=== PATIENT | male | born 1950 | race Caucasian/White ===

== ENCOUNTER 2022-01-09 07:59 | Outpatient (CLI) | payer MEDICARE, SELFPAY ==
[2022-01-09 19:07] LABS: Basophils Absolute Auto 0.1 K/mm3 (0.0-0.1); Eosinophils Absolute Auto 0.1 K/mm3 (0-0.3); Eosinophils Percent Auto 1.8 % (0-4.4); Hemoglobin 15.2 g/dL (14.0-18.0); Immature Granulocyte Absolute 0.04 K/mm3 (0.00-0.031); Immature Granulocyte Percent A 0.6 % (0-0.5); Lymphocytes Absolute Auto 2.21 K/mm3 (0.9-3.2); Lymphocytes Percent Auto 30.5 % (18.3-44.2); Mean Corpuscular Volume 90.9 fl (80-100); Mean Platelet Volume 10.5 fl (7.4-10.4); Monocytes Absolute Auto 0.6 K/mm3 (0.1-0.6); Monocytes Percent Auto 7.7 % (2.6-8.5); Neutrophils Absolute Auto 4.2 K/mm3 (1.3-6.7); Neutrophils Percent Auto 58.4 % (45.5-73.1); Platelet Count Result 321 k/mm3 (150-375); Red Blood Count 5.06 M/mm3 (4.6-6.20); Red Cell Distribution Width 13.5 % (11.5-14.5); White Blood Count 7.2 K/mm3 (4.5-10.0)
[2022-01-09 20:20] LABS: Alanine Aminotransferase 36 U/L (6-50); Albumin Level 4.7 g/dL (3.5-5.1); Alkaline Phosphatase 57 U/L (38-126); Anion Gap 11 mmol/L (8-16); Aspartate Amino Transferase 77 U/L (17-59); Bilirubin,Total 0.5 mg/dL (0.2-1.3); Blood Urea Nitrogen 18 mg/dL (9-20); Calcium 9.1 mg/dL (8.4-10.2); Carbon Dioxide 26 mmol/L (22-30); Chloride 101 mmol/L (98-107); Cholesterol 186 mg/dL (0-200); Estimated Glomerular Filt Rate > 60; Glucose 95 mg/dL (65-110); HDL Direct 64 mg/dL; Sodium 138 mmol/L (137-145); Triglycerides 93 mg/dL (<150)
[2022-01-09 20:31] LABS: LDL Cholesterol Direct 82 mg/dL
[2022-01-09 20:48] LABS: Prostate Specific Antigen 2.8 ng/mL (< OR = 4.0)
== END 2022-01-09 08:00 | disposition home or self-care (01) ==
PROVIDERS: PCP Family Medicine; Visit Provider Family Medicine
DX: Z12.5 Encounter for screening for malignant neoplasm of prostate (principal); N40.1 Benign prostatic hyperplasia with lower urinary tract symptoms; E78.2 Mixed hyperlipidemia; K21.9 Gastro-esophageal reflux disease without esophagitis
CPT/HCPCS: 36415; 80053; 80061; 82607; 84153; 85025; G0103

== ENCOUNTER 2022-02-03 09:26 | Outpatient (CLI) | payer MEDICARE, SELFPAY ==
[2022-02-03 19:20] LABS: Alanine Aminotransferase 42 U/L (6-50); Albumin Level 4.8 g/dL (3.5-5.1); Alkaline Phosphatase 51 U/L (38-126); Aspartate Amino Transferase 38 U/L (17-59); Bilirubin,Total 0.5 mg/dL (0.2-1.3)
[2022-02-03 19:30] LABS: Hepatitis B Surface Antigen Negative (Negative)
[2022-02-03 19:35] LABS: HAV RESULT Negative (Negative); Hepatitis B Core IgM Result Negative (Negative)
[2022-02-03 19:47] LABS: Hepatitis C Virus Antibody Negative (Negative)
== END 2022-02-03 09:27 | disposition home or self-care (01) ==
LOC: ANHGOSHLAB 09:29
PROVIDERS: PCP Family Medicine; Visit Provider Family Medicine
DX: R94.5 Abnormal results of liver function studies (principal)
CPT/HCPCS: 36415; 80074; 80076

== ENCOUNTER 2022-03-13 10:29 | Outpatient (CLI) | payer MEDICARE, SELFPAY ==
[2022-03-13 19:23] LABS: CRP < 0.5 mg/dL (<1.0); Rheumatoid Factor 17.7 IU/ML (<12); Uric Acid 6.2 mg/dL (3.5-8.5)
[2022-03-13 19:43] LABS: Erythrocyte Sedimentation Rate 10 mm/hr (0-20)
[2022-03-17 18:38] LABS: ANA Cascade Screen Negative (Negative)
== END 2022-03-13 10:30 | disposition home or self-care (01) ==
LOC: ANHGOSHLAB 10:31
PROVIDERS: PCP Family Medicine; Visit Provider Physician Assistant
DX: M79.643 Pain in unspecified hand (principal)
CPT/HCPCS: 36415; 84550; 85652; 86038; 86140; 86430

== ENCOUNTER → 2022-03-13 10:43 | Outpatient (CLI) | payer MEDICARE, SELFPAY ==
--- NOTE | ~2022-03-13 | XR_ITS ---
XR hand BI arthritis min 3V DATE: 03/13/2022 11:09 INDICATION: Hand pain TECHNIQUE: 4 views of each hand COMPARISON: None FINDINGS: There is polyarticular osteoarthritis involving bilateral triscaphe joints particularly, in addition to the left first and second and right first through third metacarpophalangeal joints and m ultiple bilateral interphalangeal joints, most prominent at the distal interphalangeal joint of the s econd digit. No fracture or dislocation, periosteal reaction or bone destruction. No erosive change or chondrocalc inosis is noted. IMPRESSION: Polyarticular osteoarthritis Reviewed, dictated and finalized at location B. [employer]
== END ==
PROVIDERS: PCP Physician Assistant; Visit Provider Physician Assistant
DX: M19.041 Primary osteoarthritis, right hand (principal); M19.042 Primary osteoarthritis, left hand
CPT/HCPCS: 73130

== ENCOUNTER 2022-05-09 01:17 | Day surgery (SDC) | payer MEDICARE, SELFPAY ==
[2022-04-23 10:47] VITALS: BMI 29.6
--- NOTE | 2022-05-08 15:07 | WPDANESEPPF ---
Anes - Initial Pre Proc Eval Procedure: Operation Date: 05/09/22 09:00 Proposed Procedures p Screening Colonoscopy - Mejia Dietrich MD Date/Time: 05/08/22 15:07 Surgeon: Mejia Dietrich MD Pre Op Diagnosis: neoplasm screening Patient Data Age: 71 Gender: M Height: 1.75 m Weight: 91 kg Allergies Allergy/AdvReac Type Severity Reaction Status Date / Time No Known Allergies Allergy Verified 05/09/22 07:50 Home Medications Medication Instructions Recorded Confirmed Type alfuzosin 10 mg tablet,extended 10 mg PO DAILY 01/07/22 05/09/22 History release 24 hr aspirin 81 mg tablet 81 mg PO DAILY 01/07/22 05/09/22 History finasteride 5 mg tablet 5 mg PO DAILY 01/07/22 05/09/22 History multivitamin 1 tablet PO DAILY 01/07/22 05/09/22 History omega 1-bnw-asn-fish oil 100 1 cap PO DAILY 01/07/22 05/09/22 History mg-160 mg-1,000 mg capsule (Fish Oil) triamcinolone acetonide 0.1 % 1 applic topical TID #453.6 grams 01/07/22 05/09/22 Rx topical cream hydrochlorothiazide 25 mg tablet 25 mg PO DAILY #90 tabs 01/15/22 05/09/22 Rx nifedipine 90 mg tablet,extended 90 mg PO DAILY #90 tabs 01/15/22 05/09/22 Rx release omeprazole 40 mg capsule,delayed 40 mg PO DAILY #90 caps 01/15/22 05/09/22 Rx release rosuvastatin 20 mg tablet 20 mg PO DAILY #90 tabs 01/15/22 05/09/22 Rx mupirocin 2 % topical ointment 1 applic topical BID-TID #22 grams 03/03/22 05/09/22 Rx diclofenac sodium 1 % topical gel 2 g topical QID #100 grams 03/13/22 05/09/22 Rx (Voltaren Arthritis Pain) naproxen 500 mg tablet See Rx Instructions .Route 05/07/22 05/09/22 Rx .COMPLEX #60 tabs Patient hx anesthesia problems: none Family hx anesthesia problems: none Results Review: All pre-operative results and documents have been reviewed as part of the pre-operative evaluation. [facility] Past Medical History Medical History (Updated 05/08/22 @ 15:08 by Raudel Garay DO) Essential hypertension Glaucoma Social History Social History Smoking status: Never smoker Alcohol intake: current Alcohol use details: (RUM, BEER, WHISKEY) 2-3 A DAY Substance use type: does not use Lack of Transportation: No Lack of Food: Never True Current Housing: I Have Housing Concerned About Future Housing: No Difficulty Paying Gas/Electric Bills: No Difficulty Paying for Meds: No Currently Unemployed: No Education: High School Diploma/GED Difficulty w/ Childcare or Family Care: No Living arrangements: other Additional living arrangements comments: WITH Occupation/Education: occupation Additional occupation/education comments: [employer] Gender identity (if verbalized by the patient): Male Sexual Orientation (if Verbalized by the Patient): Straight or Heterosexual Spiritual care concerns: No Agree to blood products: Yes Anes - Eval Final PreProcedure Day of Procedure 05/08/22 15:07 Patient weight: overweight Heart: regular rate and rhythm Lungs: clear to auscultation Airway: Mallampati scale class II Neurological: alert and oriented Last oral intake: >/= 8 hours ASA classification: III Emergent: no Anesthetic plan: proceed Anesthesia type and monitoring: general GIVS and standard monitoring Results Review: All pre-operative results and documents have been reviewed as part of the pre-operative evaluation. Informed Consent: The patient's anesthetic plan and its attendant risks and benefits were discussed with the patient/family/POA. Questions were solicited and answers provided to the satisfaction of the patient/family/POA.
[2022-05-09 07:51] VITALS: BP 147/89; PULSE 62; RESP 21; O2SAT 96
[2022-05-09] MEDS: LACTATED RINGERS 1,000 ML 150 ML IV CONT (07:57)
--- NOTE | 2022-05-09 08:38 | PM.HPGS ---
History of Present Illness History of Present Illness Consent: Risks, benefits, and alternatives have been discussed and questions answered. Patient agrees to proceed with procedure. Chief complaint: neoplasm screening Narrative: Hermelindo Butts is a 71 year old male here for screening colonoscopy, last one more than 10 years ago Review of Systems Constitutional: Constitutional: Denies headache(s) and Denies weakness Eyes: Eyes: Denies blurry vision ENT: Reports Normal hearing present, Denies headache(s) and Denies neck pain Cardiovascular: Cardiovascular: Denies chest pain and Denies dyspnea Respiratory: Respiratory: Denies dyspnea Gastrointestinal: Gastrointestinal: Reports no additional gastrointestinal complaints Genitourinary: Genitourinary: Denies dysuria Musculoskeletal: Musculoskeletal: Denies neck pain Integumentary/Breasts: Skin/Breast: Denies dry skin Neurologic: Reports Normal hearing present, Denies headache(s) and Denies weakness Psychiatric: Psychiatric: Denies anxiety Endocrine: Endocrine: Denies change in body appearance Hematologic/Lymphatic: Hematologic/Lymphatic: Denies easy bleeding Allergic/Immunologic: Allergic/Immunologic: Denies urticaria PMFSH Past Medical History Medical History (Updated 05/08/22 @ 15:08 by Raudel Garay DO) Essential hypertension Glaucoma Social History Social History Smoking status: Never smoker Alcohol intake: current Alcohol use details: (RUM, BEER, WHISKEY) 2-3 A DAY Substance use type: does not use Lack of Transportation: No Lack of Food: Never True Current Housing: I Have Housing Concerned About Future Housing: No Difficulty Paying Gas/Electric Bills: No Difficulty Paying for Meds: No Currently Unemployed: No Education: High School Diploma/GED Difficulty w/ Childcare or Family Care: No Living arrangements: other Additional living arrangements comments: WITH Occupation/Education: occupation Additional occupation/education comments: [employer] Gender identity (if verbalized by the patient): Male Sexual Orientation (if Verbalized by the Patient): Straight or Heterosexual Spiritual care concerns: No Agree to blood products: Yes Meds Home Medications and Allergies Home Medications Medication Instructions Recorded Confirmed Type alfuzosin 10 mg tablet,extended 10 mg PO DAILY 01/07/22 05/09/22 History release 24 hr aspirin 81 mg tablet 81 mg PO DAILY 01/07/22 05/09/22 History finasteride 5 mg tablet 5 mg PO DAILY 01/07/22 05/09/22 History multivitamin 1 tablet PO DAILY 01/07/22 05/09/22 History omega 9-zza-tlm-fish oil 100 1 cap PO DAILY 01/07/22 05/09/22 History mg-160 mg-1,000 mg capsule (Fish Oil) triamcinolone acetonide 0.1 % 1 applic topical TID #453.6 grams 01/07/22 05/09/22 Rx topical cream hydrochlorothiazide 25 mg tablet 25 mg PO DAILY #90 tabs 01/15/22 05/09/22 Rx nifedipine 90 mg tablet,extended 90 mg PO DAILY #90 tabs 01/15/22 05/09/22 Rx release omeprazole 40 mg capsule,delayed 40 mg PO DAILY #90 caps 01/15/22 05/09/22 Rx release rosuvastatin 20 mg tablet 20 mg PO DAILY #90 tabs 01/15/22 05/09/22 Rx mupirocin 2 % topical ointment 1 applic topical BID-TID #22 grams 03/03/22 05/09/22 Rx diclofenac sodium 1 % topical gel 2 g topical QID #100 grams 03/13/22 05/09/22 Rx (Voltaren Arthritis Pain) naproxen 500 mg tablet See Rx Instructions .Route 05/07/22 05/09/22 Rx .COMPLEX #60 tabs Allergies Allergy/AdvReac Type Severity Reaction Status Date / Time No Known Allergies Allergy Verified 05/09/22 07:50 Vital Signs Vital Signs - 24 hr 05/09/22 07:51 Pulse Rate 62 Respiratory Rate 21 H Blood Pressure 147/89 H Pulse Oximetry 96 Oxygen Delivery Room Air Exam Const: General: comfortable and no acute distress HENMT: Face/Nose/Sinus: Normal nares present Eyes: General: ap
[2022-05-09 09:01] VITALS: BP 116/74; PULSE 64; RESP 17; O2SAT 94
[2022-05-09 09:11] VITALS: BP 124/81; PULSE 60; RESP 13; O2SAT 96
[2022-05-09 09:21] VITALS: BP 137/93; PULSE 63; RESP 20; O2SAT 100
== END 2022-05-09 09:29 | disposition home or self-care (01) ==
PROVIDERS: PCP Physician Assistant; Visit Provider Internal Medicine Gastroenterology
PROC: 0DJD8ZZ Inspection of Lower Intestinal Tract, Via Natural or Artificial Opening Endoscopic (ICD-10-PCS; CPT 45378; principal; 2022-05-09 09:00)
DX: Z12.11 Encounter for screening for malignant neoplasm of colon (principal); K57.30 Diverticulosis of large intestine without perforation or abscess without bleeding; K64.8 Other hemorrhoids; I10 Essential (primary) hypertension; Z79.82 Long term (current) use of aspirin
CPT/HCPCS: G0121; J2704; J7120

== ENCOUNTER 2022-08-07 08:07 | Outpatient (CLI) | payer MEDICARE, SELFPAY ==
[2022-08-07 12:47] LABS: Basophils Absolute Auto 0.1 K/mm3 (0.0-0.1); Eosinophils Absolute Auto 0.2 K/mm3 (0-0.3); Eosinophils Percent Auto 3.1 % (0-4.4); Hematocrit 43.3 % (42.0-52.0); Hemoglobin 14.2 g/dL (14.0-18.0); Immature Granulocyte Absolute 0.01 K/mm3 (0.00-0.031); Immature Granulocyte Percent A 0.2 % (0-0.5); Lymphocytes Absolute Auto 2.29 K/mm3 (0.9-3.2); Lymphocytes Percent Auto 38.9 % (18.3-44.2); Mean Corpuscular HGB Conc 32.8 g/dl (32-36); Mean Corpuscular Hemoglobin 29.8 pg (26-34); Mean Platelet Volume 10.5 fl (7.4-10.4); Monocytes Absolute Auto 0.5 K/mm3 (0.1-0.6); Monocytes Percent Auto 8.3 % (2.6-8.5); Neutrophils Absolute Auto 2.9 K/mm3 (1.3-6.7); Neutrophils Percent Auto 48.5 % (45.5-73.1); Platelet Count Result 307 k/mm3 (150-375); Red Blood Count 4.76 M/mm3 (4.6-6.20); Red Cell Distribution Width 13.1 % (11.5-14.5); White Blood Count 5.9 K/mm3 (4.5-10.0)
[2022-08-07 13:10] LABS: LDL Cholesterol Direct 84 mg/dL
[2022-08-07 13:18] LABS: Alanine Aminotransferase 43 U/L (6-50); Albumin Level 4.3 g/dL (3.5-5.1); Alkaline Phosphatase 53 U/L (38-126); Anion Gap 3 mmol/L (8-16); Aspartate Amino Transferase 65 U/L (17-59); Bilirubin,Total 0.7 mg/dL (0.2-1.3); Blood Urea Nitrogen 20 mg/dL (9-20); Calcium 8.9 mg/dL (8.4-10.2); Carbon Dioxide 34 mmol/L (22-30); Chloride 103 mmol/L (98-107); Cholesterol 165 mg/dL (0-200); Estimated Glomerular Filt Rate > 60; Glucose 96 mg/dL (65-110); HDL Direct 53 mg/dL; Potassium 4.3 mmol/L (3.4-5.0); Sodium 140 mmol/L (137-145)
[2022-08-07 13:25] LABS: Prostate Specific Antigen 2.6 ng/mL (< OR = 4.0)
[2022-08-07 13:36] LABS: Triglycerides 79 mg/dL (<150)
[2022-08-07 14:34] LABS: Vitamin D 25 Hydroxy 58.5 ng/mL
== END 2022-08-07 08:08 | disposition home or self-care (01) ==
LOC: ANHGOSHLAB 08:08
PROVIDERS: PCP Physician Assistant; Visit Provider Family Medicine
DX: N40.1 Benign prostatic hyperplasia with lower urinary tract symptoms (principal); I10 Essential (primary) hypertension; Z79.899 Other long term (current) drug therapy; Z12.5 Encounter for screening for malignant neoplasm of prostate; R94.5 Abnormal results of liver function studies; H40.9 Unspecified glaucoma
CPT/HCPCS: 36415; 80053; 80061; 82306; 82607; 82728; 84153; 85025; G0103

== ENCOUNTER → 2022-08-11 07:55 | Outpatient (CLI) | payer MEDICARE, SELFPAY ==
--- NOTE | ~2022-08-11 | US_ITS ---
US abdomen limited INDICATION: Elevated liver function tests. PROCEDURE: Realtime right upper abdominal ultrasound. COMPARISON: No prior studies for comparison. FINDINGS: The pancreas is normal without focal mass or pancreatic ductal dilation. Liver echotexture is normal without focal mass or intrahepatic biliary dilatation. There is normal directional flow i n the portal vein. The gallbladder is normal without stones, gallbladder wall thickening or pericholecystic fluid. Comm on bile duct measures 3 mm. No sonographic Wilkinson's sign. IMPRESSION: 1: Normal limited abdominal ultrasound. Reviewed, dictated and finalized at location B.
== END ==
PROVIDERS: PCP Family Medicine; Visit Provider Family Medicine
DX: R74.8 Abnormal levels of other serum enzymes (principal)
CPT/HCPCS: 76705

== ENCOUNTER 2023-03-24 08:00 | Outpatient (CLI) | payer MEDICARE, SELFPAY ==
[2023-03-24 11:52] LABS: Alanine Aminotransferase 33 U/L (6-50); Albumin Level 4.3 g/dL (3.5-5.1); Alkaline Phosphatase 58 U/L (38-126); Anion Gap 9 mmol/L (8-16); Aspartate Amino Transferase 67 U/L (17-59); Bilirubin,Total 0.6 mg/dL (0.2-1.3); Blood Urea Nitrogen 20 mg/dL (9-20); Calcium 9.4 mg/dL (8.4-10.2); Carbon Dioxide 28 mmol/L (22-30); Chloride 103 mmol/L (98-107); Cholesterol 179 mg/dL (0-200); Estimated Glomerular Filt Rate > 60; Glucose 101 mg/dL (65-110); HDL Direct 55 mg/dL; Sodium 140 mmol/L (137-145); Triglycerides 117 mg/dL (<150)
[2023-03-24 12:03] LABS: LDL Cholesterol Direct 83 mg/dL
== END 2023-03-24 08:01 | disposition home or self-care (01) ==
PROVIDERS: PCP Family Medicine; Visit Provider Family Medicine
DX: I10 Essential (primary) hypertension (principal)
CPT/HCPCS: 36415; 80053; 80061

== ENCOUNTER 2023-06-11 08:44 | Outpatient (CLI) | payer MEDICARE, SELFPAY ==
--- NOTE | ~2023-06-11 | US_ITS ---
EXAMINATION: US aorta [facility] DATE: 06/11/2023 09:23 INDICATION: Personal history of nicotine dependence, hypertension, and hypercholesterolemia TECHNIQUE: Grayscale, color Doppler, and pulsed Doppler images of the aorta and common iliac arteries were obtained. COMPARISON: None. FINDINGS: Maximum vascular dimensions are as follows: Proximal aorta: 2.7 cm Mid aorta: 1.7 cm Distal aorta: 1.7 cm Right common iliac artery: 1.2 cm Left common iliac artery: 1.3 cm There is no evidence of abdominal aortic aneurysm. IMPRESSION: 1. No sonographically detected abdominal aortic aneurysm. Reviewed, dictated and finalized at location L. K SWITCHER
== END 2023-06-11 08:45 | disposition home or self-care (01) ==
PROVIDERS: PCP Family Medicine; Visit Provider Physician Assistant
DX: Z87.891 Personal history of nicotine dependence (principal)
CPT/HCPCS: 76706

== ENCOUNTER 2023-10-13 09:24 | Outpatient (CLI) | payer MEDICARE, SELFPAY ==
[2023-10-13 13:10] LABS: Basophils Absolute Auto 0.1 K/mm3 (0.0-0.1); Basophils Percent Auto 0.9 % (0.2-1.2); Eosinophils Absolute Auto 0.3 K/mm3 (0-0.3); Eosinophils Percent Auto 4.4 % (0-4.4); Hematocrit 44.5 % (42.0-52.0); Immature Granulocyte Absolute 0.02 K/mm3 (0.00-0.031); Immature Granulocyte Percent A 0.3 % (0-0.5); Lymphocytes Absolute Auto 2.35 K/mm3 (0.9-3.2); Lymphocytes Percent Auto 36.8 % (18.3-44.2); Mean Corpuscular HGB Conc 33.7 g/dl (32-36); Mean Platelet Volume 10.7 fl (7.4-10.4); Monocytes Absolute Auto 0.5 K/mm3 (0.1-0.6); Monocytes Percent Auto 7.8 % (2.6-8.5); Neutrophils Absolute Auto 3.2 K/mm3 (1.3-6.7); Neutrophils Percent Auto 49.8 % (45.5-73.1); Platelet Count Result 292 k/mm3 (150-375); Red Cell Distribution Width 13.7 % (11.5-14.5); White Blood Count 6.4 K/mm3 (4.5-10.0)
[2023-10-13 13:14] LABS: Alanine Aminotransferase 33 U/L (6-50); Albumin Level 4.5 g/dL (3.5-5.1); Alkaline Phosphatase 58 U/L (38-126); Anion Gap 9 mmol/L (4-12); Aspartate Amino Transferase 68 U/L (17-59); Bilirubin,Total 0.8 mg/dL (0.2-1.3); Blood Urea Nitrogen 20 mg/dL (9-20); Calcium 9.5 mg/dL (8.4-10.2); Carbon Dioxide 30 mmol/L (22-30); Chloride 102 mmol/L (98-107); Cholesterol 186 mg/dL (0-200); Estimated Glomerular Filt Rate > 60; Glucose 99 mg/dL (65-110); HDL Direct 55 mg/dL; Potassium 4.4 mmol/L (3.4-5.0); Sodium 141 mmol/L (137-145); Triglycerides 113 mg/dL (<150)
[2023-10-13 13:25] LABS: LDL Cholesterol Direct 100 mg/dL
[2023-10-13 13:41] LABS: Prostate Specific Antigen 3.7 ng/mL (< OR = 4.0)
== END 2023-10-13 09:25 | disposition home or self-care (01) ==
PROVIDERS: PCP Family Medicine; Visit Provider Physician Assistant
DX: Z12.5 Encounter for screening for malignant neoplasm of prostate (principal); E78.2 Mixed hyperlipidemia; I10 Essential (primary) hypertension; G56.00 Carpal tunnel syndrome, unspecified upper limb; E66.9 Obesity, unspecified; Z68.31 Body mass index [BMI] 31.0-31.9, adult
CPT/HCPCS: 36415; 80053; 80061; 84153; 84443; 85025; G0103

== ENCOUNTER 2024-10-31 08:01 | Outpatient (CLI) | payer MEDICARE, SELFPAY ==
--- OUTSIDE RECORDS SUMMARY | 2024-10-31 08:08 | XMS_ITS | Data Portability ---
Author Organization [facility], [address] [place] [address] [place]rology ([place]) Address [address] [place] [address] Care Team Providers Care Buggy Operator Name Role Phone UNACHRISTY ODELL Primary Care Provider Assessment Encounter Date Assessment Date Assessment LastModified by Organization Details LastModified Time 05/02/2024 05/02/2024 I advised patient to return in 1-1.5 years [facility] Not available 05/02/2024 16:32:05 Plan of Treatment Reminders Order Date Submit Date Provider Last Modified By Organization Details Last Modified Time Details Appointments Establish ed Patient 15.EST 2025 08:30A M Dr. Jenna Agrawal Not available Not available Not available Lab None recorded. Referral None recorded. Procedures None recorded. Surgeries None recorded. Imaging None recorded. Medication Orders None recorded. Patient TargetsNo targets recorded. Patient InstructionsNo instructions recorded. Reason for Referral None Reported. Problems Name Problem SNOMED Code Status Onset Date Resolution Date Notes Provider Name and Address Organization Details Recorded Time Lentiginosis 281359919 [facility] 16:31:[facility] Seborrheic keratosis 851505641 [facility] 16:31:30 Hemangioma of skin 78549412 [facility] 16:31:47 Dermatofibroma 681127784 [facility] 16:31:57 Problem Notes None recorded. Procedures Surgical History Date Name Laterality Status Provider Name and Address Organization Details Recorded Time Colonoscopy with biopsy completed Not Available Health Note 04/26/2024 13:51:24 Imaging Results None recorded. Procedure Notes None recorded. Medical Equipment None Reported. Medications Name Sig Start Date Stop Date Status Note LastModified by Organization Details LastModified Time nifedipine ER 90 mg tablet,extende d release TAKE 1 TABLET BY MOUTH DAILY active Not Available Not Available No t Available omeprazole 40 mg capsule,delaye d release TAKE 1 CAPSULE BY MOUTH DAILY active Not Available Not Available No t Available triamcinolone acetonide 0.1 % topical cream APPLY TO THE AFFECTED AREA THREE TIMES DAILY active Not Available Not Available No t Available hydrochlorothi azide 25 mg tablet TAKE 1 TABLET BY MOUTH DAILY active Not Available Not Available No t Available finasteride 5 mg tablet TAKE 1 TABLET BY MOUTH DAILY active Not Available Not Available No t Available naproxen 500 mg tablet TAKE 1 TABLET BY MOUTH TWICE DAILY active Not Available Not Available No t Available rosuvastatin 20 mg tablet TAKE 1 TABLET BY MOUTH DAILY active Not Available Not Available No t Available Vitals None Recorded Social History Question Answer Notes LastModified by Organizat ion Details LastModified Time Tobacco Smoking Status Former Smoker Not Available Health Note 04/26/2024 13:51:25 Do You Have An Advance Directive? Yes [email or web address] Information not available 04/26/2024 What Is Your Level Of Caffeine Consumption? Moderate [email or web address] Information not available 04/26/2024 What Is Your Code Status? DNR [email or web address] Information not available 04/26/2024 How Many Times Per Week Do You Exercise? 1-2 Times Per Week [email or web address] Information not available 04/26/2024 When Did You Quit Smoking? 1970 [email or web address] Information not available 04/26/2024 What Was The Date Of Your Most Recent Tobacco Screening? 05/02/2024 [email or web address] Information not available 04/26/2024 What Is Your Relationship Status? [email or web address] Information not available 04/26/2024 Sex: Unknown Functional Status Question Answer Note LastModified by Organizat ion Details LastModified Time How many times per week do you consume alcohol? 5-7 times per week [email or web address] Information not available 04/26/2024 Do you use any illicit or recreational drugs? No [email or web address] Information not available 04/26/2024 What is your level of alcohol consumption? Moderate [email or web address] Information not available 04/26/2024 Are you currently employed? No [email or web address] Information not available 04/26/2024 What is your occupation? retired [email or web address] Information not available 04/26/2024 What is your exercise level? Moderate [email or web address] Information not available 04/26/2024 Mental Status None recorded. Family History Relationship Description Onset Age of this Age Resolved Age Notes LastModified by Organization Details LastModified Time Father Alzheimer's disease [email or web address] Not available 2024 13:51:24 Father Diabetes mellitus [email or web address] Not available 2024 13:51:24 Father Heart disease [email or web address] Not available 2024 13:51:24 Father Hypertensive disorder [email or web address] Not available 2024 13:51:24 Mother Arthritis [email or web address] Not available 04/26/2024 13:51:24 Brother Family history of malignant neoplasm [email or web address] Not available 2024 13:51:24 Brother Diabetes mellitus [email or web address] Not available 2024 13:51:24 Brother Heart disease [email or web address] Not available 2024 13:51:24 Daughter Family history of malignant neoplasm [email or web address] Not available 2024 13:51:24 Sister Diabetes mellitus [email or web address] Not available 2024 13:51:24 Sister Hypertensive disorder [email or web address] Not available 2024 13:51:24 Medical History Condition Response High Blood Pressure Y COPD N Depression N Anxiety Disorder N Arthritis Y Cancer N Stroke N Fibromyalgia N Kidney Disease N Attention-deficit Hyperactivity Disorder N Thyroid Problems N Anemia N Diabetes N Bleeding Disorder N Hyperlipidemia N Asthma N Seizures N Heart Disease N Osteoporosis N Past Encounters Encounter ID Performer Location Encounter Start Date Encounter Closed Date Diagnosis/Indication Diagnosis SNOMED-CT Code Diagnosis ICD10 Code Diagnosis Note [id number] Jenna Agrawal MD [facility] ([place] [address] [place] [address] 05/02/2024 15:42:40 05/02/2024 16:19:35 Lentiginosis 720979466 L81.4 Lentigines . We discussed the fact that lentigines are actinicall y induced and that they are benign. We discussed the fact that they should be watched carefully for change. We discussed the importance of photoprote ction using protective clothing and sunscreen with SPF 30 or higher on a regular basis. We will observe. Seborrheic keratosis 394 612587 L82.1 {{Hemangio ma Hemangi omas Sebor rheic keratoses* Seborrhei c keratoses* Dermatofi broma Derm atofibroma s Acrochor don Acroch orda Intra dermal nevus Intr adermal nevi Sebac eous hyperplasi a Telangie ctasia Tel angiectase s Milium M citlali Open comedone O pen comedones Neurofibro ma Neurofi bromas Lip susan Lipoma s Fibrous papule Fib andrés papules Cy st Cysts}} We discussed the fact that these are benign lesions requiring no treatment. We discussed the fact that removal would be considered a cosmetic procedure and would not be covered by insurance. The patient was advised that more such lesions may develop. The patient is not bothered by the lesions and does not wish to have them treated. We will observe. Hemangioma of skin 07341 006 D18.01 {{Hemangio ma Hemangi omas* Sebo rrheic keratoses Seborrheic keratoses Dermatofib daysi [place] tofibromas Acrochord on Acrocho lean specialist Intrad ermal nevus Intr adermal nevi Sebac eous hyperplasi a [place] ctasia Tel angiectase s Milium M citlali Open comedone O pen comedones Neurofibro ma Neurofi bromas Lip susan Lipoma s Fibrous papule Fib andrés papules Cy st Cysts}} We discussed the fact that these are benign lesions requiring no treatment. We discussed the fact that removal would be considered a cosmetic procedure and would not be covered by insurance. The patient was advised that more such lesions may develop. The patient is not bothered by the lesions and does not wish to have them treated. We will observe. Dermatofibroma [id number] D23.9 {{Hemangio ma Hemangi omas Sebor rheic keratoses Seborrheic keratoses Dermatofib daysi [place] tofibromas * Acrochor don Acroch orda Intra dermal nevus Intr adermal nevi Sebac eous hyperplasi a [place] ctasia Tel angiectase s Milium M citlali Open comedone O pen comedones Neurofibro ma Neurofi bromas Lip susan Lipoma s Fibrous papule Fib andrés papules Cy st Cysts}} We discussed the fact that these are benign lesions requiring no treatment. We discussed the fact that removal would be considered a cosmetic procedure and would not be covered by insurance. The patient was advised that more such lesions may develop. The patient is not bothered by the lesions and does not wish to have them treated. We will observe. Health Concerns Section Related Observation LastModified by Organization Detai ls LastModified Time None Recorded Concern Status LastModified by Organization Details LastModified Time None Recorded Advance Directives Directive Y: Payers Insurance Date Sequence Insurance Name Policy Number Policy Rios Covered Member ID Rios Member ID Guarantor Name 05/05/2024 1 [employer] (MEDICARE REPLACEMENT/ ADVANTAGE - PPO) [id number] Hermelindo Butts [id number] Hermelindo Butts
--- OUTSIDE RECORDS SUMMARY | 2024-10-31 08:08 | XMS_ITS | Data Portability ---
Author Organization [facility] Address [address] [place] [address] Assessment No assessment recorded. Plan of Treatment Reminders Order Date Submit Date Provider Last Modified By Organization Details Last Modified Time Details Appointments None recorded . Lab None recorded . Referral None recorded . Procedures None recorded . Surgeries None recorded . Imaging None recorded . Medication Orders pravasta tin 40 mg tablet 2015 016 INTERFACE [facility], [address] [facility], [place], [address], 6 10:26:52 Zetia 10 mg tablet 2015 016 [id number] [address] [place], [address], 6 12:58:05 Zetia 10 mg tablet 2015 016 [email or web address] [facility]/Pharmacy #[id number], [address] [place], [address], 6 12:58:04 Patient TargetsNo targets recorded. Patient Instructions Encounter Date Encounter Id Patient Instructions Last Modified By Organization Details Last Modified Time 05/16/2015 [id number] benign prostatic hyperplasia: care instructions [email or web address] Not available 05/17/2015 08:05:05 07/30/2015 [id number] elevated blood pressure: care instructions [email or web address] Not available 07/30/2015 15:20:05 benign prostatic hyperplasia: care instructions [email or web address] Not available 07/30/2015 15:20:05 12/07/2015 [id number] learning about high blood sugar [email or web address] Not available 12/07/2015 10:51:33 elevated blood pressure: care instructions [email or web address] Not available 12/07/2015 10:26:37 Reason for Referral None Reported. Results Created Date Observation Date Name Description Value Unit Range Abnormal Flag Note LastModifiedBy Organization Detail LastModifiedTime 05/08/19 16 05/08/2015 CBC w/ diff WBC 4.8 X10'3 /uL 4.8-10 .8 [place], [address], 05/08/2015 22:22:39 05/08/19 16 05/08/2015 CBC w/ diff RBC 4.97 X10'6 /uL 4.70-6 .10 [place], [address], 05/08/2015 22:22:39 05/08/19 16 05/08/2015 CBC w/ diff hemoglobin 14.7 g/dL 14.0-1 8.0 [place], [address], 05/08/2015 22:22:39 05/08/19 16 05/08/2015 CBC w/ diff hematocrit 46.0 % 43.0-5 4.0 [place], [address], 05/08/2015 22:22:39 05/08/19 16 05/08/2015 CBC w/ diff MCV 92.6 fL 80.0-9 4.0 [place], [address], 05/08/2015 22:22:39 05/08/19 16 05/08/2015 CBC w/ diff MCH 29.6 pg 27.0-3 1.0 Not Available [facility] [place], [address], 05/08/2015 22:22:39 05/08/19 16 05/08/2015 CBC w/ diff MCHC 32.0 g/dL 32.0-3 6.0 [place], [address], 05/08/2015 22:22:39 05/08/19 16 05/08/2015 CBC w/ diff RDW 13.2 % 11.5-1 4.5 [place], [address], 05/08/2015 22:22:39 05/08/19 16 05/08/2015 CBC w/ diff platelet count 292 X10'3 /uL 130-40 0 Not Available [facility], [place], [address], 05/08/2015 22:22:39 05/08/19 16 05/08/2015 CBC w/ diff MPV 10.9 fL 9.3-12 .2 [place], [address], 05/08/2015 22:22:39 05/08/19 16 05/08/2015 CBC w/ diff differential type AUTOMA TIGRE [place], [address], 05/08/2015 22:22:39 05/08/19 16 05/08/2015 CBC w/ diff neutrophil 53.6 % 43.0-6 5.0 [place], [address], 05/08/2015 22:22:39 05/08/19 16 05/08/2015 CBC w/ diff lymphocyte 35.6 % 20.0-4 6.0 [place], [address], 05/08/2015 22:22:39 05/08/19 16 05/08/2015 CBC w/ diff monocyte 7.5 % 5.0-12 .0 [place], [address], 05/08/2015 22:22:39 05/08/19 16 05/08/2015 CBC w/ diff eosinophil 2.5 % 1.0-3. 0 [place], [address], 05/08/2015 22:22:39 05/08/19 16 05/08/2015 CBC w/ diff basophil 0.6 % 0.0-1. 0 [place], [address], 05/08/2015 22:22:39 05/08/19 16 05/08/2015 CBC w/ diff immature granulocytes 0.2 % 0.0-1. 0 [place], [address], 05/08/2015 22:22:39 05/08/19 16 05/08/2015 CMP, serum or plasm a glucose 100 mg/dL 70-99 high [place], [address], 05/08/2015 23:03:47 05/08/19 16 05/08/2015 CMP, serum or plasm a BUN 22 mg/dL 8-[address] [place], [address], 05/08/2015 23:03:47 05/08/19 16 05/08/2015 CMP, serum or plasm a creatinine 1.07 mg/dL 0.70-1 .20 [place], [address], 05/08/2015 23:03:47 05/08/1905/08/2015 CMP, serum or plasm a sodium 137 mmol/ L 136-14 5 [place], [address], 05/08/2015 23:03:47 05/08/19 16 05/08/2015 CMP, serum or plasm a potassium 4.9 mmol/ L 3.5-5. 1 [place], [address], 05/08/2015 23:03:47 05/08/1905/08/2015 CMP, serum or plasm a chloride 99 mmol/ L 98-107 [place], [address], 05/08/2015 23:03:47 05/08/1905/08/2015 CMP, serum or plasm a CO2 25 mmol/ L 22-29 [place], [address], 05/08/2015 23:03:47 05/08/1905/08/2015 CMP, serum or plasm a total bilirubin 0.4 mg/dL 0.2-1. 2 [place], [address], 05/08/2015 23:03:47 05/08/19 16 05/08/2015 CMP, serum or plasm a calcium 9.5 mg/dL 8.6-10 .2 [place], [address], 05/08/2015 23:03:47 05/08/19 16 05/08/2015 CMP, serum or plasm a alkaline phosphatase 54 IU/L 40-129 [place], [address], 05/08/2015 23:03:47 05/08/19 16 05/08/2015 CMP, serum or plasm a AST/SGOT 27 IU/L 0-40 [place], [address], 05/08/2015 23:03:47 05/08/19 16 05/08/2015 CMP, serum or plasm a total protein 6.8 g/dL 6.4-8. 3 [place], [address], 05/08/2015 23:03:47 05/08/19 16 05/08/2015 CMP, serum or plasm a albumin 4.3 g/dL 3.5-5. 2 [place], [address], 05/08/2015 23:03:47 05/08/19 16 05/08/2015 CMP, serum or plasm a ALT/SGPT 23 IU/L 0-41 [place], [address], 05/08/2015 23:03:47 05/08/19 16 05/08/2015 CMP, serum or plasm a globulin, calc 2.5 g/dL 2.3-3. 6 [place], [address], 05/08/2015 23:03:47 05/08/19 16 05/08/2015 CMP, serum or plasm a A/G ratio, calc 1.7 1.0-2. 0 [place], [address], 05/08/2015 23:03:47 05/08/19 16 05/08/2015 CMP, serum or plasm a anion gap, calc 18 8-20 [place], [address], 05/08/2015 23:03:47 05/08/19 16 05/08/2015 CMP, serum or plasm a eGFR nonafrican amer >60 mL/mi n/1.7 3m'2 >60 [place], [address], 05/08/2015 23:03:47 05/08/19 16 05/08/2015 CMP, serum or plasm a eGFR amer >60 mL/mi n/1.7 3m'2 >60 NOTE: eGFR is not calcu lated for patie nts <18 years of age. This is an estim ated GFR (CKD EPI) and shoul d not be used for calcu latin g drug doses . [place], [address], 05/08/2015 23:03:47 05/08/19 16 05/08/2015 lipid panel , blood cholesterol 248 mg/dL <200 high NOTE: Aceta minop hen, N Acety l p benzo kiki ne imine (NAPQ I), N acety lcyst eine (NAC) , Metam izole , 4 Amino antip yrine (4 AAP) and 4 Methy fredo o antip yrine (4 MAP) at high aliya ntrat ions can cause false ly low resul ts on Lacta te, Uric Acid, Altagracia stero l, Trigl yceri de, HDL, and Direc t LDL. Not Available [facility], [place], [address], 05/08/2015 23:03:49 05/08/19 16 05/08/2015 lipid panel , blood triglyceride 92 mg/dL <150 Not Available [facility], [place], [address], 05/08/2015 23:03:49 05/08/1905/08/2015 lipid panel , blood HDL 60 mg/dL >59 Not Available [facility], [place], [address], 05/08/2015 23:03:49 05/08/19 16 05/08/2015 lipid panel , blood LDL, calc 170 mg/dL <100 high Not Available [facility], [place], [address], 05/08/2015 23:03:49 05/08/1905/08/2015 lipid panel , blood non HDL, calc 188 mg/dL <130 high NOTE: WHEN THE TRIGL YCERI SANIYA ARE >200 mg/dL , NON HDL C IS A SECON DOUGIE TARGE T OF THERA PY, WITH A GOAL 30 mg/dL HIGHE R THAN THE IDENT IFIED LDL C GOAL. Not Available [facility], [place], [address], 05/08/2015 23:03:49 05/08/19 16 05/08/2015 lipid panel , blood chol/HDL, calc 4.1 0.0-4. 5 Not Available [facility], [place], [address], 05/08/2015 23:03:49 05/08/19 16 05/08/2015 lipid panel , blood VLDL, calc 18 mg/dL 5-55 Not Available [facility], [place], [address], 05/08/2015 23:03:49 05/08/19 16 05/08/2015 lipid panel , blood interpretati on NIH ALIYA NSUS REPOR T RECOM MENDA TIONS : ADULT CHILD LOW RISK: ALTAGRACIA STERO L <200 <170 TRIGL YCERI DE <150 --- HDL >=60 --- LDL <100 <110 BORDE RLINE : ALTAGRACIA STERO L 200-2 39 170-1 99 TRIGL YCERI DE 150-1 99 --- HDL 40-59 --- LDL 100-1 59 110-1 29 HIGH RISK: ALTAGRACIA STERO L >=240 >=200 TRIGL YCERI DE >=200 --- HDL <40 --- LDL >=160 >=130 Not Available [facility], [place], [address], 05/08/2015 23:03:49 05/08/19 16 05/08/2015 TSH, serum or plasm a TSH 2.13 mIU/m L 0.27-4 .20 Not Available [facility], [place], [address], 05/08/2015 23:03:50 07/24/19 16 07/24/2015 lipid panel , blood cholesterol 230 mg/dL <200 high NOTE: Aceta minop hen, N Acety l p benzo kiki ne imine (NAPQ I), N acety lcyst eine (NAC) , Metam izole , 4 Amino antip yrine (4 AAP) and 4 Methy fredo o antip yrine (4 MAP) at high aliya ntrat ions can cause false ly low resul ts on Lacta te, Uric Acid, Altagracia stero l, Trigl yceri de, HDL, and Direc t LDL. Not Available [facility], [place], [address], 07/24/2015 22:38:38 07/24/19 16 07/24/2015 lipid panel , blood triglyceride 66 mg/dL <150 Not Available [facility], [facility] [place], [address], 07/24/2015 22:38:38 07/24/19 16 07/24/2015 lipid panel , blood HDL 67 mg/dL >59 Not Available [facility], [place], [address], 07/24/2015 22:38:38 07/24/19 16 07/24/2015 lipid panel , blood LDL, calc 150 mg/dL <100 high Not Available [facility], [place], [address], 07/24/2015 22:38:38 07/24/1907/24/2015 lipid panel , blood non HDL, calc 163 mg/dL <130 high NOTE: WHEN THE TRIGL YCERI SANIYA ARE >200 mg/dL , NON HDL C IS A SECON DOUGIE TARGE T OF THERA PY, WITH A GOAL 30 mg/dL HIGHE R THAN THE IDENT IFIED LDL C GOAL. Not Available [facility], [place], [address], 07/24/2015 22:38:38 07/24/1907/24/2015 lipid panel , blood chol/HDL, calc 3.4 0.0-4. 5 Not Available [facility], [place], [address], 07/24/2015 22:38:38 07/24/19 16 07/24/2015 lipid panel , blood VLDL, calc 13 mg/dL 5-55 Not Available [facility], [place], [address], 07/24/2015 22:38:38 07/24/19 16 07/24/2015 lipid panel , blood interpretati on NIH ALIYA NSUS REPOR T RECOM MENDA TIONS : ADULT CHILD LOW RISK: ALTAGRACIA STERO L <200 <170 TRIGL YCERI DE <150 --- HDL >=60 --- LDL <100 <110 BORDE RLINE : ALTAGRACIA STERO L 200-2 39 170-1 99 TRIGL YCERI DE 150-1 99 --- HDL 40-59 --- LDL 100-1 59 110-1 29 HIGH RISK: ALTAGRACIA STERO L >=240 >=200 TRIGL YCERI DE >=200 --- HDL <40 --- LDL >=160 >=130 Not Available [facility], [place], [address], 07/24/2015 22:38:38 Result Notes None recorded. Problems Name Problem SNOMED Code Status Onset Date Resolution Date Notes Provider Name and Address Organization Details Recorded Time Benign prostatic hyperplasia 839888235 Active Ishaan Shetty MD Attn: Chapin g,[address] [place], [address], [facility] 6 15:03:41 Hyperlipidemia 39778468 Active YESENIA Gonzalez Attn: Accountamadeo g,[address] [facility], [place], [address], [facility] 6 10:26:37 Hyperglycemia 14824028 Active YESENIA Gonzalez Attn: Chapin g,[address] [facility], [place], [address], [facility] 6 10:26:37 Increased blood pressure 31185112 Active Betty escobar, ZOO DIRECTOR-BC Attn: Chapin murphy,[address] [facility], [place], [address], [facility] 6 10:26:37 Problem Notes None recorded. Medical Equipment None Reported. Allergies Allergen ID Allergen Name Allergen Category Reaction Reaction Severity Criticality Documentation Date Start Date Code Code System Note Provider Name and Address Organization Details Recorded Time 02021 Lipitor medicatio n Not available Not available Not available 04/11/2014 95050 5 RxNorm RONAL Ford, [facility] 5 15:57:05 97832 Product containin g 3-hydroxy -3-methyl glutaryl- coenzyme A reductase inhibitor (product) medicatio n myalgias (muscle pain) Not available Not available 05/16/2015 76868 009 SNOMED Ismael Garcia [facility], [facility] 6 17:17:12 Medications Name Sig Start Date Stop Date Status Note LastModified by Organization Details LastModified Time amoxicillin 500 mg capsule 05/16 completed Not Available Not Available Not Available pravastatin 40 mg tablet Take 1 tablet every day by oral route. 2015 active Not Available Not Available Not Avai lable ciprofloxaci n 500 mg tablet 05/01 completed Not Available Not Available Not Available omeprazole 40 mg capsule,alfred yed release TAKE ONE CAPSULE BY MOUTH EVERY DAY active Not Available Not Available No t Available pravastatin 20 mg tablet Take 1 tablet every day by oral route. active Not Available Not Available No t Available naproxen 500 mg tablet TAKE 1 TABLET TWICE A DAY active Not Available Not Available No t Available Zetia 10 mg tablet TAKE 1 TABLET DAILY active Not Available Not Available No t Available saw palmetto active Not Available Not Available Not Available Vitals Date Recorded Respiratory rate Body weight Heart rate Body mass index (BMI) Body height Body temperature Systolic And Diastolic Provider Name and Address Organization Details Last Updated DateTime 5 16 /min 05281.6 75317 g 80 /min 31.2 kg/m2 177.8 cm 98.1 [degF] 120/90 mm[Hg] RONAL Ford [facility] 5 15:57:05 Date Recorded Body weight Body height Body temperature Body mass index (BMI) Respiratory rate Systolic And Diastolic Provider Name and Address Organization Details Last Updated DateTime 6 21847.6 57128 g 175.26 cm 98.4 [degF] 30.9 kg/m2 16 /min 130/68 mm[Hg] Ismael Garcia MA [facility] 6 16:37:10 Date Recorded Respiratory rate Body height Body mass index (BMI) Body weight Heart rate Systolic And Diastolic Provider Name and Address Organization Details Last Updated DateTime 6 16 /min 175.26 cm 32 kg/m2 57091.5 4429 g 88 /min 132/90 mm[Hg] Ismael Garcia MA [facility] 6 14:48:07 Date Recorded Body weight Respiratory rate Body height Heart rate Body mass index (BMI) Systolic And Diastolic Provider Name and Address Organization Details Last Updated DateTime 6 60906.3 5955 g 16 /min 175.26 cm 72 /min 31.7 kg/m2 144/100 mm[Hg] Ismael Garcia MA [facility] 6 09:56:53 Social History None recorded. Functional Status Question Answer Note LastModified by Organizat ion Details LastModified Time What is your level of alcohol consumption? Occasional [id number] Information not available 02/07/2020 Mental Status None recorded. Family History Relationship Description Onset Age of this Age Resolved Age Notes LastModified by Organization Details LastModified Time Father Hypertensive disorder [email or web address] Not available 12/06 09:56:54 Father Diabetes mellitus [email or web address] Not available 12/06 09:56:54 Medical History Condition Response Muscle, Joint, or Bone Problems Y Acid Reflux (GERD) Y Immunizations Vaccine Type Date Status Note Provider Nam e and Address Organization Details Recorded Time Tdap 08/27/2011 completed Ismael Garcia [facility] 05/16/2015 16:37:56 Past Encounters Encounter ID Performer Location Encounter Start Date Encounter Closed Date Diagnosis/Indication Diagnosis SNOMED-CT Code Diagnosis ICD10 Code Diagnosis Note [id number] Pinky Duque MD [address] [address] 04/11/2014 15:22:57 04/11/2014 16:26:06 Increased blood pressure 52558860 DASH diet. try to decr wt by 10lbs. will f/u w/ dot in 3mo [id number] Pinky Duque MD [facility] [address] [place] [phone] 05/16/2015 16:07:12 05/16/2015 17:29:13 Adult health examination 048355399 Z00.00 healthy lifestyle discussed. reviewed meds Benign pro static hyperplasia 352002666 D29.1 has seen urologist in past and declines returning. is comfortabl e w/ yearly f/u here. cont Saw Burkett Hyperlipidemia 62843529 E78.0 reviewed lab. lots of aches w/ statin--wi lling to re-sart Zetia--martinez monteiro given work on diet [id number] Ishaan Shetty MD [facility] [address] [place] [phone] 07/30/2015 14:27:20 07/30/2015 15:05:13 Increased blood pressure 09922501 I10 Hyperlipidemia 26027350 E78.5 Was on zetia every other day until he had labs drawn, then started taking every day. Chol still not at goal, so every day zetia should help. Has h/o intoleranc e to statins, including atorvastat in, and zocor. Benign pro static hyperplasia 448808221 N40.0 [id number] Ishaan Shetty MD [facility] [address] [place] [phone] 12/07/2015 09:44:39 12/27/2015 11:38:54 Hyperlipidemia 90884406 E78.0 reviewed meds--cont Increased blood pressure 70261165 R03.0 DASH diet. try to decr wt by 10lbs. will f/u w/ dot in 3mo Hyperglycemia 65833234 R 73.9 reviewed lab--diet high in sugar--thony lorenzo work on it Health Concerns Section Related Observation LastModified by Organization Detclara ls LastModified Time None Recorded Concern Status LastModified by Organization Details LastModified Time None Recorded Advance Directives Directive None Recorded Payers Insurance Date Sequence Insurance Name Policy Number Policy Rios Covered Member ID Rios Member ID Guarantor Name 04/11/2014 1 [facility] Hermelindo Butts [id number] Hermelindo Butts 12/06/2015 1 [facility] [id number] Hermelindo Butts [id number] Hermelindo Butts
--- OUTSIDE RECORDS SUMMARY | 2024-10-31 08:08 | XMS_ITS | Clinical Summary ---
Author Organization [facility] Address [address] [place] [address] Care Team Providers Care Coconut Boiler Name Role Phone Laura Barragan MD Primary Care Provider [phone] Social History Tobacco Use Types Packs/Day Years Used Date Smoking Tobacco: Never Assessed Sex and Gender Information Value Date Recorded Sex Assigned at Not on file Legal Sex Male 9:45 PM CDT Gender Identity Not on file Sexual Orientation Not on file Last Filed Vital Signs Vital Sign Reading Time Taken Comments Blood Pressure 148/90 02/14/2014 2:25 PM [employer] Pulse - - Temperature - - Respiratory Rate - - Oxygen Saturation - - Inhaled Oxygen Concentration - - Weight 93 kg (205 lb) 01/31/2014 2:12 PM CDT Height 177.8 cm (5' 10) 01/31/2014 2:12 PM CDT Body Mass Index 29.41 01/31/2014 2:12 PM CDT Plan of Treatment Health Maintenance Due Date Last Done Comments Colorectal Cancer Screening Colonoscopy (10 Years) 1950 Hepatitis C 1968 Annual Medicare Wellness Visit 2016 Pneumococcal Vaccine: 50+ Years (2 of 2 - PPSV23) 09/23/2017 09/23/2016 DTaP, Tdap and Td Vaccines ( 2 - Td or Tdap) 08/26/2021 08/27/2011 COVID-19 Vaccine ( - 2023-2 5 season) 2023 RSV Immunization or 60+ Years (1 - 1-dose 75+ series) 2026 Zoster Vaccines Completed 10/06/2017, 06/01/2017 Meningococcal B Vaccine Aged Out No l onger eligible based on patient's age to complete this topic Meningococcal Vaccine Aged Out No warren jorge eligible based on patient's age to complete this topic RSV Immunizations Under 20 Months Aged Out No longer eligible b ased on patient's age to complete this topic Insurance [employer]ET[employer] Care Teams Coconut Boiler Relationship Specialty Start [place] [address] [place], [place] [address] PCP - General FAMILY PRACTICE 01/18/19
--- OUTSIDE RECORDS SUMMARY | 2024-10-31 08:08 | XMS_ITS | Continuity of Care Document ---
Author Organization [facility] Address [address] [place] [address] Phone Care Team Providers Care Insole Tape Stitcher Uco Name Role Phone Lakisha RICHARDSON MD, Jose Manuel Unavailable Unavaila ble Procedures Procedure Date I M E No Show Appointment Advance Directives Directive Yes / No Effective Date File Name No Information Encounters Encounter Description Practice Location Reason(s) For Visit Diagnoses Date Provider Providers Copied on Encounter [facility], [address], [id number], tel:[phone] [facility] No Information 200 8 Lakisha Richard. [address] [facility], [facility] [address], [place], [place], [id number] , [place]. tel:[phone] Family History Family Member Type Diagnosis Age At Onset No Information Payers Payer name Insurance type Covered green party ID Authoriza tion(s) No Information Social History Type Description Quantity Date Captured Comments Sex Male Smoking Status No Information Chief Complaint And Reason For Visit No Information Reason For Referral Reason For Referral No Information History Of Present Illness Encounter Date Complaint History Of Prese nt Illness No Information Functional Status Date Functional Assessmen t No Information Instructions Date Instruction Additional Infor mation No Information Assessments Type Assessment Date No Information Patient Care Teams Name Effective Dates (start - stop) Status Members No Information
--- OUTSIDE RECORDS SUMMARY | 2024-10-31 08:08 | XMS_ITS | Clinical Summary ---
Author Organization [email or web address] Address [address] [place] [address] Care Team Providers Care Green Building Engineer Name Role Phone Laura Barragan MD Primary Care Provider [phone] Source Comments [email or web address],non-owned Affiliates and Associated Physician Practices is amultiple site organization consisting of ambulatory clinics and hospital sitesin [place], [place], [place] and [place]. This disclosure is being madepursuant to the Care Everywhere program and may not contain all information available regarding this patient. Last updated [employer] [email or web address] Allergies No known active allergies Medications * Be aware that medications may not be up to date on this document. Alwaysverify current medications with the patient. No known medications Social History Tobacco Use Types Packs/Day Years Used Date Smoking Tobacco: Never Alcohol Use Standard Drinks/Week Comments Yes 0 (1 standard drink = 0.6 oz pur e alcohol) occ Sex and Gender Information Value Date Recorded Sex Assigned at Not on file Legal Sex Male 1:02 PM BARIATRIC SURGEON Gender Identity Not on file Sexual Orientation Not on file Last Filed Vital Signs Vital Sign Reading Time Taken Comments Blood Pressure 172/104 04/20/2020 7:45 PM BARIATRIC SURGEON Pulse 68 04/20/2020 9:10 PM BARIATRIC SURGEON Temperature 36.7 C (98.1 F) 04/20/2020 9:10 PM BARIATRIC SURGEON Respiratory Rate 16 04/20/2020 1:03 PM BARIATRIC SURGEON Oxygen Saturation 98% 04/20/2020 9:10 PM BARIATRIC SURGEON Inhaled Oxygen Concentration - - Weight 95.3 kg (210 lb) 04/20/2020 1:03 PM BARIATRIC SURGEON Height 175.3 cm (5' 9) 04/20/2020 1:03 PM BARIATRIC SURGEON Body Mass Index 31.01 04/20/2020 1:03 PM BARIATRIC SURGEON Plan of Treatment Health Maintenance Due Date Last Done Comments COLOGUARD (AGES 45-75) - COL ON CA SCREENING 1951 COLON MONITORING 1951 COLONOSCOPY - COLON CA SCREENING 1951 CT COLONOGRAPHY - COLON CA SCREENING 1950 Colorectal Cancer Screening 1950 FIT - COLON CA SCREENING 1951 FLEX SIG - COLON CA SCREENING 1951 LIPID TESTING 1950 HEPATITIS C SCREENING 05/13/1969 DTAP/TDAP/TD VACCINES (1 - Tdap) 1970 PNEUMOCOCCAL VACCINE 50+ (1 of 1 - PCV) 2001 ZOSTER VACCINE (1 of 2) 2001 COVID-19 VACCINE ( - 2023-2 5 season) 2023 DEPRESSION SCREENING 04/06/2024 INFLUENZA VACCINE (#1) 2024 Respiratory Syncytial Virus (RSV) Vaccine Pt: or over 60 yrs (1 - 1-dose 75+ series) 2026 HEPATITIS B VACCINE Aged Out No longe r eligible based on patient's age to complete this topic HIB VACCINE Aged Out No longer eligi ble based on patient's age to complete this topic HPV VACCINE Aged Out No longer eligi ble based on patient's age to complete this topic MENINGOCOCCAL (Group B) VACC INE SHARED DECISION-MAKING Aged Out No longer eligibl e based on patient's age to complete this topic MENINGOCOCCAL GROUPS A/C/Y/W VACCINE Aged Out No longer eligible b ased on patient's age to complete this topic Insurance [employer] Care Teams Green Building Engineer Relationship Specialty [place] [address] [place] [address] PCP - General Family Medicine 04/20/20
[2024-10-31 14:28] LABS: Alanine Aminotransferase 29 U/L (6-50); Albumin Level 4.6 g/dL (3.5-5.1); Alkaline Phosphatase 58 U/L (38-126); Anion Gap 8 mmol/L (4-12); Aspartate Amino Transferase 68 U/L (17-59); Bilirubin,Total 0.7 mg/dL (0.2-1.3); Blood Urea Nitrogen 20 mg/dL (9-20); Calcium 9.2 mg/dL (8.4-10.2); Carbon Dioxide 29 mmol/L (22-30); Chloride 99 mmol/L (98-107); Cholesterol 189 mg/dL (0-200); Estimated Glomerular Filt Rate > 60; Glucose 91 mg/dL (65-110); HDL Direct 57 mg/dL; Potassium 3.8 mmol/L (3.4-5.0); Sodium 136 mmol/L (137-145); Total Protein 7.8 g/dL (6.3-8.2); Triglycerides 125 mg/dL (<150)
== END 2024-10-31 08:02 | disposition home or self-care (01) ==
PROVIDERS: PCP Family Medicine; Visit Provider Student in an Organized Health Care Education/Training Program
DX: E78.2 Mixed hyperlipidemia (principal); I10 Essential (primary) hypertension
CPT/HCPCS: 36415; 80053; 80061

== ENCOUNTER 2024-12-12 09:21 | Outpatient (CLI) | payer MEDICARE, SELFPAY ==
--- NOTE | ~2024-12-12 | XR_ITS ---
EXAM/ PROCEDURE: XR knee LT 3V - 12/12/2024 9:34 CDT HISTORY: 74 years old Male with Pain in right knee x several years COMPARISON: None available TECHNIQUE: Three view(s) FINDINGS/ IMPRESSION: There are no fractures or dislocations.Joint space narrowing, subchondral sclerosis, subchondral cyst formation and osteophyte formation, compatible with [id number] osteoarthritis. Reviewed, dictated and finalized at location N.
--- NOTE | ~2024-12-12 | XR_ITS ---
EXAM/ PROCEDURE: XR knee RT 3V - 12/12/2024 9:34 CDT HISTORY: 74 years old Male with Pain in right knee x several years COMPARISON: None available TECHNIQUE: Three view(s) FINDINGS/ IMPRESSION: There are no fractures or dislocations.Joint space narrowing, subchondral sclerosis, subchondral cyst formation and osteophyte formation, compatible with mild to moderate osteoarthritis. Reviewed, dictated and finalized at location N.
== END 2024-12-12 09:22 | disposition home or self-care (01) ==
PROVIDERS: PCP Orthopaedic Surgery; Visit Provider Student in an Organized Health Care Education/Training Program
DX: M25.561 Pain in right knee (principal); M25.562 Pain in left knee
CPT/HCPCS: 73562